=== PATIENT | male | born 1990 | race Caucasian/White ===

== ENCOUNTER 2016-06-12 12:25 | Inpatient (IN) | payer OTHER ==
[~2016-06-12] VITALS: Ht 175.3 cm; Wt 76.5 kg
[2016-06-12 14:15] LABS: MEAN CORPUSCULAR HGB CONC 34.6 g/dl (32.0-36.5); MEAN CORPUSCULAR VOLUME 83.8 fl (80.0-96.0); RED CELL DISTRIBUTION WIDTH 12.9 % (11.5-14.5); WHITE BLOOD COUNT 6.7 K/mm3 (4.0-10.0)
[2016-06-12 14:17] LABS: AMPHETAMINES LEVEL URINE NEGATIVE (NEGATIVE); BENZODIAZEPINES URINE NEGATIVE (NEGATIVE); COCAINE METABOLITE URINE NEGATIVE (NEGATIVE); CONTROL LINE INT CTR LINE PRESENT; METHADONE URINE NEGATIVE (NEGATIVE); OPIATES URINE NEGATIVE (NEGATIVE); TRICYCLIC ANTIDEPRESS URINE NEGATIVE (NEGATIVE)
[2016-06-12 14:44] LABS: ALBUMIN 4.6 GM/DL (3.2-5.2); ALBUMIN/GLOBULIN RATIO 1.44 (1.00-1.93); ALKALINE PHOSPHATASE 99 U/L (45-117); ALT/SGPT 39 U/L (12-78); ANION GAP 10 MEQ/L (8-16); AST/SGOT 22 U/L (15-37); BILIRUBIN,DIRECT 0.2 MG/DL (0.0-0.2); BILIRUBIN,TOTAL 0.5 MG/DL (0.2-1.0); BLOOD UREA NITROGEN 13 MG/DL (7-18); CARBON DIOXIDE LEVEL 28 MEQ/L (21-32); CHLORIDE LEVEL 104 MEQ/L (98-107); CREATININE FOR GFR 0.97 MG/DL (0.70-1.30); GLOMERULAR FILTRATION RATE > 60.0 (>60); GLUCOSE, FASTING 93 MG/DL (70-105); POTASSIUM SERUM 4.1 MEQ/L (3.5-5.1); SODIUM LEVEL 142 MEQ/L (136-145); TOTAL PROTEIN 7.8 GM/DL (6.4-8.2)
[2016-06-12] MEDS ORDERED: TRAZ100T4 PO (19:06)
[2016-06-12] MEDS ORDERED: MINI2CAP PO (19:06)
[2016-06-12] MEDS ORDERED: VITMTA PO (19:06)
[2016-06-12] MEDS ORDERED: SERT-138 PO (19:06)
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
--- NOTE | 2016-06-12 21:29 | EDDOCDS ---
Physician Documentation [facility] Name: Herbert Morillo Age: 26 yrs Sex: Male : 1990 Arrival Date: 06/12/2016 Time: 12:25 Bed [facility] Private MD: Other - Complete Info On Cds Disposition: 06/12/16 18:42 Hospitalization ordered by Puneet Valenzuela for Inpatient Admission. Preliminary diagnosis is Post-traumatic stress disorder (PTSD). - Bed requested for Admit. - Status is Inpatient Admission. rw1 - Condition is Stable. - Problem is an ongoing problem. - Symptoms have worsened. Historical: - Allergies: no known allergies; - Home Meds: 1. Zoloft 100 mg Oral tab 1 tab once daily 2. Minipress 2 mg Oral cap nightly 3. trazodone 100 mg Oral tab nightly - PMHx: PTSD; ETOH abuse; TBI; - PSHx: none; - Social history: Smoking status: Patient uses tobacco products, current some day smoker. No barriers to communication noted, The patient speaks fluent Romansh. - Family history: Not pertinent. - : The pt / caregiver states he / she is not on anticoagulants. Home medication list is obtained from the patient. - Exposure Risk Screening:: None identified. Vital Signs: 06/12 12:27 BP 161 / 100; Pulse 94; Resp 18 S; Temp 97.5(O); Pulse Ox 98% on R/A; Weight 74.84 kg / gr2 164.99 lbs (R); Height 69 in. (175.26 cm) (R); Pain 0/10; 13:55 BP 142 / 86; Pulse 89; Resp 16; Pulse Ox 97% on R/A; dwg 16:22 BP 150 / 88; Pulse 88; Resp 16; Temp 97.9(O); Pulse Ox 98% on R/A; dpm 21:25 BP 139 / 83; Pulse 95; Resp 95; Temp 97.6(O); Pulse Ox 97% on R/A; Pain 0/10; rw1 12:27 Body Mass Index 24.37 (74.84 kg, 175.26 cm) gr2 MDM: 13:15 REGULAR DIET PLASTIC CHAPARRO+DIET ordered. EDMS 13:54 Consult PFS/PSA/Ice Cream Freezer ordered. dwg 13:54 Consult PFS/PSA/Ice Cream Freezer: Patient's case requires discussion with on-call g Psychiatrist ordered. 13:54 PSA/PFS to call Nursing County Treasurer, to enter patient data on [place] Safe Act if patient dwg involuntarily admitted or transferred for SI or HI ordered. 13:54 Confirm accurate psychiatric medication list and times of last dosage ordered. dwg 13:54 Detain Pt Until Medically/PFS Cleared ordered. dwg 13:55 Acetaminophen Level Ordered. EDMS 13:55 Basic Metabolic Profile Ordered. EDMS 13:55 Complete Blood Count Ordered. EDMS 13:55 Drug Eval Toxicology ED Only Ordered. EDMS 13:55 Ethyl Alcohol (ethanol) Ordered. EDMS 13:55 Liver Profile Ordered. EDMS 13:55 Salicylate Level Ordered. EDMS 13:55 Thyroid Stimulating Hormone Ordered. EDMS 14:49 Acetaminophen Level Reviewed. br1 14:49 Drug Eval Toxicology ED Only Reviewed. br1 14:49 Salicylate Level Reviewed. br1 14:49 Basic Metabolic Profile Reviewed. br1 14:49 Complete Blood Count Reviewed. br1 14:49 Ethyl Alcohol (ethanol) Reviewed. br1 14:49 Liver Profile Reviewed. br1 14:49 Thyroid Stimulating Hormone Reviewed. br1 14:50 Consult PFS/PSA/Socail Worker: Cleared medically for eval ordered. br1 15:14 Consult PFS/PSA/Socail Worker: Cleared medically for eval complete. rb 16:12 REGULAR DIET PLASTIC CHAPARRO+DIET ordered. EDMS 17:19 Consult PFS/PSA/Ice Cream Freezer complete. rb 17:19 Consult PFS/PSA/Ice Cream Freezer: Patient's case requires discussion with on-call rb Psychiatrist complete. 17:19 PSA/PFS to call [employer] [place] Treasurer, to enter patient data on [place] Safe Act if patient rb involuntarily admitted or transferred for SI or HI complete. 17:22 Financial registration complete. gjb 17:56 BED REQUEST+ADM ordered. EDMS 18:04 Admit to [facility]: ordered. EDMS 18:20 [facility] Payment Agreement was scanned into angelcam and attached to record. gjb 18:54 [facility] Legal paperwork was scanned into angelcam and attached to record. rb Signatures: Dispatcher [employer] EDMS Braden Sahu RN RN dwg Liana Langford, PSA PSA rb Arron Childress LPN LPN rw1 Francisco Javier Badillo MD MD br1 Inna Amaya The chart was reviewed and I authenticate all verbal orders and agree with the evaluation and treatment provided.Attachments: 18:20 [facility] Payment Agreement maikel MTDD
[2016-06-12 21:44] VITALS: BP 148/91
[2016-06-12] MEDS ORDERED: MAALOX 30 ML SUSP *UDC PO PRN (23:15)
[2016-06-12] MEDS ORDERED: ACETAMINOPHEN TAB 650MG DOSE (2X325MG) PO PRN (23:15)
[2016-06-12] MEDS ORDERED: OXAZEPAM 15 MG CAP PO PRN (23:15)
[2016-06-12] MEDS ORDERED: MOM 30ML SUSPENSION UDC PO PRN (23:15)
[2016-06-12] MEDS ORDERED: OLANZapine ORAL DISINTEGRATING TAB 5MG PO PRN (23:15)
[2016-06-12] MEDS: PRAZOSIN 1 MG CAP PO SCH (23:33)
[2016-06-12] MEDS: traZODone 50 MG TAB PO PRN (23:34)
[2016-06-13 06:39] VITALS: BP 157/71
[2016-06-13] MEDS ORDERED: SERTRALINE 100 MG TAB PO SCH (09:00)
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
[2016-06-13 12:00] VITALS: BP 140/89
[2016-06-13] MEDS: hydrOXYzine 50 MG TAB PO PRN (17:36)
[2016-06-13 18:00] VITALS: BP 127/79
--- NOTE | 2016-06-13 20:11 | HPEPDOC ---
[facility] History & Physical History and Physical DATE OF ADMISSION: Jun 12, 2016 at 21:40 CHIEF COMPLAINT:" I'd already got out of mental hospital, they stressed me out, didn't know how meds would affect my alcohol level ". HISTORY OF THE PRESENT ILLNESS: Patient states "basically I got my treatment, went out with friends and got way too drunk. I have a dark sense of humor ". Patient states sometimes his humor can be taken the wrong way. Patient also states he didn't realize the effect of this medication when mixed with alcohol. Patient reports multiple times that he does not do well in places he feels confined. Such as this unit with block doors. Patient expresses interest in wanting to be transferred to a [place] treatment program. Patient also wants to get back into his exercise regimen of lifting weights. Patient feels this is the best way he can help and decrease his symptoms of PTSD. PAST PSYCHIATRIC HISTORY: Patient reports his first behavioral health treatment was in January 2016 for his PTSD. Patient states that this PTSD is from deployment issues that he had in 2010. Patient further states he did not admit to these issues of being stressed out. 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 Patient states she used to blame it on his jobs, but then feels he recognized a pattern and realized it was PTSD ALLERGIES: Please see below. PAST MEDICAL HISTORY: Patient denies HOME MEDICATIONS: Please see below. Patient states she was started on Zoloft 100 mg by mouth every morning during his hospitalization a week ago patient states at this time he was also started on prazosin 2 mg by mouth daily at bedtime for his "unwanted memories ". Patient states these memories occur randomly however he has noticed a occur more frequently when he is not busy or doing something that is keeping him focused. Patient states on average she has 2 -3 of these unwanted memories per day. Patient reports his unwanted memories are always from the activities of his deployment. FAMILY PSYCHIATRIC HISTORY: Patient denies. 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 Patient states he has one brother that is supportive. Patient states he has 2 brothers and 3 sisters total. Patient reports he does not get along with his mother as he feels she was responsible for the breakup of his parents marriage. Patient states his mom cheated on his dad with an anti- indy. Patient states his father has since . SUBSTANCE ABUSE HISTORY: Patient admits to smoking cannabis 2-3 times a week. Patient reports he is early failed the [facility] drug testing and is worried about his benefits. Patient also admits to drinking 8 beers, 2-3 times a week. LEGAL HISTORY: Patient reports she was arrested for public intoxication in the past and spent overnight in senior living. Patient denies any other arrests or senior living time. VITAL SIGNS: Temperature 96, pulse 80, respiratory rate 20, blood pressure 157/ 71. LABORATORY DATA: Please see below. On admission patient UDS was positive for cannabis alcohol level was 0.09. MENTAL STATUS EXAMINATION: Patient is a 26-year-old male who appears his stated age. Patient is noted to be lying in bed states he has a headache. Patient is pleasant and engageable sits up to speak with provider readily. Patient is wearing hospital scrubs and T -shirt. He appears to have average grooming. Patient is of normal weight and build. Speech: Is of normal rate and volume. Patient is articulate, coherent and spontaneous. Language skills are intact. Thought processes: Not clear or goal directed. Patient states "there are 150% clearer than when I was admitted ". Thought content: Rational, logical, circumstantial. Abstract reasoning and computation: Adequate. Description of associations: Intact. Description of abnormal or psychotic thoughts: Patient denies hallucinations, delusions, obsessions or compulsions, homicidal or suicidal ideation. Patient does feel preoccupied with discharge from the hospital. Judgment and insight: Poor. Orientation to: Time, place, person and situation. Recent and remote memory: "Pretty decent ". Attention span and concentration: Fair. Language: Normal. Fund of knowledge: Adequate. Mood: "Kind of anxious ", manic, slightly agitated, expansive, animated. Affect: Appropriate, flat, constricted, manic at times, animated at times. DIAGNOSES: 1. PTSD 2. Alcohol use disorder. 3. Cannabis use disorder 4. 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 Patient did request behavioral health services starting in January 2016 for symptoms that he recognized were PTSD. Patient states he has had a hard time getting treatment for the symptoms. Patient states this is why he returned to cannabis as he could not be seen or get medications that helped him improve and decrease the symptoms. Patient initially felt that is only with way to deal with this was to get out of the . After talking with provider patient felt like he may have had slight hope that if his symptoms of PTSD could be addressed that he would be able to stay in the . Patient states he does enjoy being in the when he is not having the symptoms that "stress him out", in his own words. Patient states that if he thought he could say in the by stopping the use of alcohol altogether and not using marijuana he would stop it immediately. This would run concurrent with him being placed on appropriate medications to limit the severity and intensity of his PTSD symptoms. This is his second enlistment. Patient states it became increasingly frustrating for him with his symptoms of increased stress that he unable to get help for. Patient reports an example of this was when he asked for behavioral health services while on a recent training assignment in [place], he was told in order to get the services he would have to report in front of a panel of peers in formation and explain to everyone why he felt he needed these services. Patient states this only increased his stress made him frustrated and feels like didn't care about what his mental health was. 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 He also reports he didn't feel that this was appropriate that he would have to share this private information. This alone patient reports has made him feel more anxious and stressed. Patient now feels like he doesn't know who he can trust and who really does have his back, so to speak. 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 Again patient states he felt like his only recourse was to use marijuana which brought him slight relief. PROBLEM LIST: 1. Anxiety 2. Substance abuse. 3. Ineffective coping. INITIAL TREATMENT PLAN: Patient to be assessed and evaluated on an ongoing basis. Patient will have medications adjusted as required to decrease symptoms. Maintain safety precautions. Patient to attend groups and participate in unit programming and activities to develop effective coping strategies. Patient to be engaged in discharge planning process to ensure safe and effective discharge plan. Patient to follow-up with primary care physician upon discharge for a complete physical with lab work. Patient to resume therapy and medication management services as directed. Patient to consider substance abuse support services to stop use of substances. ESTIMATED LENGTH OF STAY: 4-7 days. TIME SPENT EVALUATING AND COORDINATING INITIAL CARE: 50 minutes. Medications Scheduled Multivitamins *[facility] STOCKED* (Thera M Plus *[facility] STOCKED*) 1 Tab Tab 1 TAB PO DAILY (Reported) Prazosin HCl (Minipress) 2 Mg Cap 2 MG PO QHS (Reported) Sertraline HCl (Sertraline HCl) 100 Mg Tab 100 MG PO DAILY (Reported) Trazodone HCl (Trazodone HCl) 100 Mg Tab 100 MG PO QHS (Reported) Allergies Coded Allergies: No Known Allergies (Unverified , 06/12/16) RAJESH COOK NP Jun 13, 2016 20:11
[2016-06-13] MEDS: GABAPENTIN 100 MG CAP PO SCH (20:54)
[2016-06-13] MEDS: PRAZOSIN 1 MG CAP PO SCH (20:54)
[2016-06-13] MEDS: traZODone 50 MG TAB PO PRN (20:54)
--- NOTE | 2016-06-13 23:15 | ECGEPIP ---
Stationary ECG Study [facility] Test Date: 2016-06-13 Pat Name: LAXMI BOND Department: Room: [place] [address] Gender: M Local Sales Manager: NAOMY : 1990 Requested By: Carmel Troy Order Number: [id number] Reading MD: Keshawn Kidd Measurements Intervals [place] Rate: 66 P: 57 NM: 158 QRS: 78 QRSD: 94 T: 57 QT: 388 QTc: 407 Interpretive Statements SINUS RHYTHM NO PRIOR Electronically Signed On 06-13-2016 23:15:24 EST by Keshawn Kidd
[2016-06-14 06:50] VITALS: BP 145/67
[2016-06-14] MEDS: SERTRALINE HCL 50 MG TAB PO SCH (08:56)
[2016-06-14] MEDS: hydrOXYzine 50 MG TAB PO PRN ×2 (11:33→20:05)
[2016-06-14 12:00] VITALS: BP 126/83
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
[2016-06-14 18:00] VITALS: BP 129/74
[2016-06-14] MEDS: GABAPENTIN 100 MG CAP PO SCH (20:05)
[2016-06-14] MEDS: traZODone 50 MG TAB PO PRN (20:05)
[2016-06-14] MEDS: PRAZOSIN 1 MG CAP PO SCH (20:06)
--- NOTE | 2016-06-14 22:30 | EDDOCDS ---
Physician Documentation [facility] Name: Herbert Morillo Age: 26 yrs Sex: Male : 1990 Arrival Date: 06/12/2016 Time: 12:25 Bed [facility] Private MD: Other - Complete Info On Cds Disposition: 06/12/16 18:42 Hospitalization ordered by Puneet Valenzuela for Inpatient Admission. Preliminary diagnosis is Post-traumatic stress disorder (PTSD). - Bed requested for Admit. - Status is Inpatient Admission. rw1 - Condition is Stable. - Problem is an ongoing problem. - Symptoms have worsened. Historical: - Allergies: no known allergies; - Home Meds: 1. Zoloft 100 mg Oral tab 1 tab once daily 2. Minipress 2 mg Oral cap nightly 3. trazodone 100 mg Oral tab nightly - PMHx: PTSD; ETOH abuse; TBI; - PSHx: none; - Social history: Smoking status: Patient uses tobacco products, current some day smoker. No barriers to communication noted, The patient speaks fluent Vietnamese. - Family history: Not pertinent. - : The pt / caregiver states he / she is not on anticoagulants. Home medication list is obtained from the patient. - Exposure Risk Screening:: None identified. Vital Signs: 06/12 12:27 BP 161 / 100; Pulse 94; Resp 18 S; Temp 97.5(O); Pulse Ox 98% on R/A; Weight 74.84 kg / gr2 164.99 lbs (R); Height 69 in. (175.26 cm) (R); Pain 0/10; 13:55 BP 142 / 86; Pulse 89; Resp 16; Pulse Ox 97% on R/A; dwg 16:22 BP 150 / 88; Pulse 88; Resp 16; Temp 97.9(O); Pulse Ox 98% on R/A; dpm 21:25 BP 139 / 83; Pulse 95; Resp 95; Temp 97.6(O); Pulse Ox 97% on R/A; Pain 0/10; rw1 12:27 Body Mass Index 24.37 (74.84 kg, 175.26 cm) gr2 MDM: 13:15 REGULAR DIET PLASTIC CHAPARRO+DIET ordered. EDMS 13:54 Consult PFS/PSA/Vending Machine Servicer ordered. dwg 13:54 Consult PFS/PSA/Vending Machine Servicer: Patient's case requires discussion with on-call g Psychiatrist ordered. 13:54 PSA/PFS to call Nursing Can Striper, to enter patient data on [place] Safe Act if patient dwg involuntarily admitted or transferred for SI or HI ordered. 13:54 Confirm accurate psychiatric medication list and times of last dosage ordered. dwg 13:54 Detain Pt Until Medically/PFS Cleared ordered. dwg 13:55 Acetaminophen Level Ordered. EDMS 13:55 Basic Metabolic Profile Ordered. EDMS 13:55 Complete Blood Count Ordered. EDMS 13:55 Drug Eval Toxicology ED Only Ordered. EDMS 13:55 Ethyl Alcohol (ethanol) Ordered. EDMS 13:55 Liver Profile Ordered. EDMS 13:55 Salicylate Level Ordered. EDMS 13:55 Thyroid Stimulating Hormone Ordered. EDMS 14:49 Acetaminophen Level Reviewed. br1 14:49 Drug Eval Toxicology ED Only Reviewed. br1 14:49 Salicylate Level Reviewed. br1 14:49 Basic Metabolic Profile Reviewed. br1 14:49 Complete Blood Count Reviewed. br1 14:49 Ethyl Alcohol (ethanol) Reviewed. br1 14:49 Liver Profile Reviewed. br1 14:49 Thyroid Stimulating Hormone Reviewed. br1 14:50 Consult PFS/PSA/Socail Worker: Cleared medically for eval ordered. br1 15:14 Consult PFS/PSA/Socail Worker: Cleared medically for eval complete. rb 16:12 REGULAR DIET PLASTIC CHAPARRO+DIET ordered. EDMS 17:19 Consult PFS/PSA/Vending Machine Servicer complete. rb 17:19 Consult PFS/PSA/Vending Machine Servicer: Patient's case requires discussion with on-call rb Psychiatrist complete. 17:19 PSA/PFS to call Nursing Can Striper, to enter patient data [place] Safe [place] if patient rb involuntarily admitted or transferred for SI or HI complete. 17:22 Financial registration complete. gjb 17:56 BED REQUEST+ADM ordered. EDMS 18:04 Admit to [facility]: ordered. EDMS 18:20 [facility] Payment Agreement was scanned into [employer] and attached to record. gjb 18:54 M[facility] Legal paperwork was scanned into [employer] and attached to record. rb 06/13 12:49 T-Sheet-- Draft Copy was scanned into [employer] and attached to record. gb Signatures: Dispatcher [employer] Braden Brown, RN RN dwg Liana Langford, PSA PSA rb Latoya Magaña, Reg Reg gb Arron Childress,CABLE SYSTEMS INSTALLER CABLE SYSTEMS INSTALLER rw1 Francisco Javier Badillo MD MD br1 Inna Amaya The chart was reviewed and I authenticate all verbal orders and agree with the evaluation and treatment provided.Attachments: 06/12 18:20 [facility] Payment Agreement gjb 06/13 12:49 T-Sheet-- Draft Copy gb Chart Complete MTDD
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
--- NOTE | 2016-06-14 22:30 | EDDOCDS ---
Physician Documentation [facility] Name: Herbert Morillo Age: 26 yrs Sex: Male : 1990 Arrival Date: 06/12/2016 Time: 12:25 Bed [facility] Private MD: Other - Complete Info On Cds Disposition: 06/12/16 18:42 Hospitalization ordered by Puneet Valenzuela for Inpatient Admission. Preliminary diagnosis is Post-traumatic stress disorder (PTSD). - Bed requested for Admit. - Status is Inpatient Admission. rw1 - Condition is Stable. - Problem is an ongoing problem. - Symptoms have worsened. Historical: - Allergies: no known allergies; - Home Meds: 1. Zoloft 100 mg Oral tab 1 tab once daily 2. Minipress 2 mg Oral cap nightly 3. trazodone 100 mg Oral tab nightly - PMHx: PTSD; ETOH abuse; TBI; - PSHx: none; - Social history: Smoking status: Patient uses tobacco products, current some day smoker. No barriers to communication noted, The patient speaks fluent Uzbek. - Family history: Not pertinent. - : The pt / caregiver states he / she is not on anticoagulants. Home medication list is obtained from the patient. - Exposure Risk Screening:: None identified. Vital Signs: 06/12 12:27 BP 161 / 100; Pulse 94; Resp 18 S; Temp 97.5(O); Pulse Ox 98% on R/A; Weight 74.84 kg / gr2 164.99 lbs (R); Height 69 in. (175.26 cm) (R); Pain 0/10; 13:55 BP 142 / 86; Pulse 89; Resp 16; Pulse Ox 97% on R/A; dwg 16:22 BP 150 / 88; Pulse 88; Resp 16; Temp 97.9(O); Pulse Ox 98% on R/A; dpm 21:25 BP 139 / 83; Pulse 95; Resp 95; Temp 97.6(O); Pulse Ox 97% on R/A; Pain 0/10; rw1 12:27 Body Mass Index 24.37 (74.84 kg, 175.26 cm) gr2 MDM: 13:15 REGULAR DIET PLASTIC CHAPARRO+DIET ordered. EDMS 13:54 Consult PFS/PSA/Hoop Coiler ordered. dwg 13:54 Consult PFS/PSA/Hoop Coiler: Patient's case requires discussion with on-call g Psychiatrist ordered. 13:54 PSA/PFS to call Nursing Finish Mixer, to enter patient data on [place] Safe [place] if patient dwg involuntarily admitted or transferred for SI or HI ordered. 13:54 Confirm accurate psychiatric medication list and times of last dosage ordered. dwg 13:54 Detain Pt Until Medically/PFS Cleared ordered. dwg 13:55 Acetaminophen Level Ordered. EDMS 13:55 Basic Metabolic Profile Ordered. EDMS 13:55 Complete Blood Count Ordered. EDMS 13:55 Drug Eval Toxicology ED Only Ordered. EDMS 13:55 Ethyl Alcohol (ethanol) Ordered. EDMS 13:55 Liver Profile Ordered. EDMS 13:55 Salicylate Level Ordered. EDMS 13:55 Thyroid Stimulating Hormone Ordered. EDMS 14:49 Acetaminophen Level Reviewed. br1 14:49 Drug Eval Toxicology ED Only Reviewed. br1 14:49 Salicylate Level Reviewed. br1 14:49 Basic Metabolic Profile Reviewed. br1 14:49 Complete Blood Count Reviewed. br1 14:49 Ethyl Alcohol (ethanol) Reviewed. br1 14:49 Liver Profile Reviewed. br1 14:49 Thyroid Stimulating Hormone Reviewed. br1 14:50 Consult PFS/PSA/Socail Worker: Cleared medically for eval ordered. br1 15:14 Consult PFS/PSA/Socail Worker: Cleared medically for eval complete. rb 16:12 REGULAR DIET PLASTIC CHAPARRO+DIET ordered. EDMS 17:19 Consult PFS/PSA/Hoop Coiler complete. rb 17:19 Consult PFS/PSA/Hoop Coiler: Patient's case requires discussion with on-call rb Psychiatrist complete. 17:19 PSA/PFS to call Nursing Finish Mixer, to enter patient data [place] Safe [place] if patient rb involuntarily admitted or transferred for SI or HI complete. 17:22 Financial registration complete. gjb 17:56 BED REQUEST+ADM ordered. EDMS 18:04 Admit to [facility] THE [facility]: ordered. EDMS 18:20 [facility] Payment Agreement was scanned into [employer] and attached to record. gjb 18:54 [facility] Legal paperwork was scanned into [employer] and attached to record. rb 06/13 12:49 T-Sheet-- Draft Copy was scanned into [employer] and attached to record. gb Signatures: Dispatcher [employer] Braden Brown, RN RN dwg Liana Langford, PSA PSA rb Latoya Magaña, Reg Reg gb Arron Childress,CARE COORDINATOR CARE COORDINATOR rw1 Francisco Javier Badillo MD MD br1 Inna Amaya The chart was reviewed and I authenticate all verbal orders and agree with the evaluation and treatment provided.Attachments: 06/12 18:20 [facility] Payment Agreement gjb 06/13 12:49 T-Sheet-- Draft Copy gb Chart Complete MTDD
[2016-06-15 06:38] VITALS: BP 108/55
[2016-06-15] MEDS: hydrOXYzine 50 MG TAB PO PRN ×2 (08:09→19:59)
[2016-06-15] MEDS: SERTRALINE HCL 50 MG TAB PO SCH (08:09)
[2016-06-15 18:00] VITALS: BP 118/62
--- NOTE | 2016-06-15 18:20 | IPNPDOC ---
[facility] Progress Note Progress Note DATE OF SERVICE: 06/15/16 HISTORY: " I'd already got out of mental hospital, they stressed me out, didn't know how meds would affect my alcohol level ". Patient states "basically I got my treatment, went out with friends and got way too drunk. I have a dark sense of humor ". Patient states sometimes his humor can be taken the wrong way. Patient also states he didn't realize the effect of this medication when mixed with alcohol. Patient reports multiple times that he does not do well in places he feels confined. Such as this unit with block doors. Patient expresses interest in wanting to be transferred to a [facility] treatment program. Patient also wants to get back into his exercise regimen of lifting weights. Patient feels this is the best way he can help and decrease his symptoms of PTSD. PAST PSYCHIATRIC HISTORY: Patient reports his first behavioral health treatment was in January 2016 for his PTSD. Patient states that this PTSD is from deployment issues that he had in 2010. Patient further states he did not admit to these issues of being stressed out. 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 Patient states she used to blame it on his jobs, but then feels he recognized a pattern and realized it was PTSD ALLERGIES: Please see below. PAST MEDICAL HISTORY: Patient denies HOME MEDICATIONS: Please see below. Patient states he was started on Zoloft 100 mg by mouth every morning during his hospitalization a week ago. Patient states at this time he was also started on prazosin 2 mg by mouth daily at bedtime for his "unwanted memories ". Patient reports these memories occur randomly, however he has noticed they occur more frequently when he is stressed or not busy. Patient states on average he has 2-3 of these unwanted memories per day. Patient reports his unwanted memories are always from the activities of his deployment, specifically "The [employer] blast". FAMILY PSYCHIATRIC HISTORY: Patient denies. 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 Patient states he has one brother that is supportive. Patient states he has 2 brothers and 3 sisters total. Patient reports he does not get along with his mother as he feels she was responsible for the breakup of his parents marriage. Patient states his mom cheated on his dad with an anti- indy. Patient states his father has since . SUBSTANCE ABUSE HISTORY: Patient admits to smoking cannabis 2-3 times a week. Patient reports he has already failed the [place] drug testing and is worried about his benefits. Patient also admits to drinking 8 beers, 2-3 times a week. Pt. reports he did this only to relieve some of his symptoms as he was not able to get behavioral health treatment. LEGAL HISTORY: Patient reports he was arrested for public intoxication in the past and spent overnight in assisted. Patient denies any other arrests or assisted time. VITAL SIGNS: See below. 96.4 76 18 108/55 TEST RESULTS: On admission patient UDS was positive for cannabis, alcohol level was 0.09. CURRENT MEDICATIONS: See below. Zoloft 50 mg po q am, Prazosin 2 mg po q hs, gabapentin 100 mg po q hs, trazodone 100 mg po q hs, hydroxyzine hydrochloride 50 mg po q 6h prn for anxiety/agitation. MENTAL STATUS EXAMINATION: Patient is a 26-year-old male who appears his stated age. Patient is noted to be in line for medication. Patient is pleasant, easily engaged. Patient is wearing his own clothes. He appears to have average grooming. Patient is of normal weight and build. Speech: Is of normal rate and volume. Patient is articulate, coherent and spontaneous. Language skills are intact. Thought processes: Clear, goal directed. Thought content: Rational, logical. Abstract reasoning and computation: Adequate. Description of associations: Intact. Description of abnormal or psychotic thoughts: Patient denies hallucinations, delusions, obsessions or compulsions, homicidal or suicidal ideation. Patient does feel preoccupied with discharge from the hospital, worried about benefits when he is from the [employer]. Judgment and insight: Fair. Orientation to : Time, place, person and situation. Recent and remote memory: "Same". Attention span and concentration: Fair. Language: Normal. Fund of knowledge: Adequate. Mood: "Good", rational. Affect: Appropriate, flat, constricted. DIAGNOSES: 1. PTSD. 2. Alcohol use disorder. 3. Cannabis use disorder. 4. Insomnia. ASSESSMENT: Pt. seen for assessment after he received his morning meds. Pt. states he slept "Good" last night and got 8 hours of sleep, "Same as last night ". Pt. reports feeling rested on waking. Pt. states he has been eating in the lounge and going to groups. Pt. appears to be more clear, not manic, calmer in behavior. Pt. again states he does not like crowds of people or confined spaces. Pt. appears to be adjusting to the unit well, is starting to be more social with less isolating. Pt. denies all suicidal or homicidal ideation. Pt. encouraged to participate in activities and unit programming that may help to decrease his stress. Pt. reports his "unwanted memories" have decreased and not occurred for a few days. Pt. continues to appear calm and not agitated. Pt. continues to be in emotional and behavioral control. MANAGEMENT PLAN: Patient to be assessed and evaluated on an ongoing basis. Patient will have medications adjusted as required to decrease symptoms. Maintain safety precautions. Patient to attend groups and participate in unit programming and activities to develop effective coping strategies. Patient to be engaged in discharge planning process to ensure safe and effective discharge plan. Patient to follow-up with primary care physician upon discharge for a complete physical with lab work. Patient to resume therapy and medication management services as directed. Patient to consider substance abuse support services to stop use of substances. Pt. feels today he will only agree to [facility]. Pt. understands he can ask for senior living care if he feel he needs it after the [facility] program. 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 Patient states he did request behavioral health services starting in January 2016 for symptoms that he recognized were PTSD. Patient states he has had a hard time getting treatment for the symptoms. Patient states this is why he returned to cannabis as he could not be seen or get medications that helped him improve and decrease the symptoms. Patient initially felt that is only with way to deal with this was to get out of the . Patient had previously told his chain of command that he wanted to be discharged. Pt. states he did this as he did not want his symptoms jeopardizing his fellow soldiers and did not think that he could get the symptoms under control. Pt. reports if he had known it was treatable, he would have opted to stay in the . Patient states he does enjoy being in the when he is not having the symptoms that "stress him out", in his own words. Patient states that if he thought he could say in the by stopping the use of alcohol altogether and not using marijuana he would stop it immediately. This would run concurrent with him being placed on appropriate medications to limit the severity and intensity of his PTSD symptoms. This is his second enlistment. Patient states it has become increasingly frustrating for him with his symptoms of increased stress which he was unable to get help for. Patient reports an example of this was when he asked for behavioral health services while on a recent training assignment in [place], he was told in order to get the services, he would have to report in front of formation and explain to everyone why he felt he needed these services. Patient states this only increased his stress and made him feel more frustrated. Pt. also felt like the didn't care about what his mental health was. Patient states even if he wanted to he would not have been able to bilingual case manager front of a group of his peers and discuss his private mental health issues. He also reports he didn't feel that this was appropriate that he would have to share this private information. This alone, patient reports has made him feel more anxious and stressed. Patient now feels like he doesn't know who he can trust and who really does have his back, so to speak. 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 Again patient states he felt like his only recourse was to use marijuana which brought him slight relief. TIME SPENT: 25 minutes. Vital Signs Vital Signs Date Time Temp Pulse Resp B/P Pulse Ox O2 Delivery O2 Flow Rate FiO2 06/15/16 06:38 96.4 76 18 108/55 06/12/16 21:44 Room Air Current Medications Current Medications Medications (Trade) Dose Ordered Sig/Mirian Route PRN Reason Start Time Stop Time Status Last Admin Dose Admin Acetaminophen (Tylenol Tab) 650 mg Q6HP PRN PO HEADACHE or DISCOMFORT 06/12/16 23:15 07/12/16 23:14 06/13/16 14:30 Al Hydrox/Mg Hydrox/Simethicone (Mylanta) 30 ml Q4HP PRN PO HEARTBURN/INDIGESTION 06/12/16 23:15 07/12/16 23:14 Gabapentin (Neurontin) 100 mg QHS PO 06/13/16 21:00 07/13/16 20:59 06/14/16 20:05 Home Med (Med Rec Complete!) ASDIRECTED XX 06/12/16 19:15 06/12/16 19:15 DC Hydroxyzine HCl (Atarax) 50 mg Q6HP PRN PO ANXIETY/AGITATION 06/13/16 17:00 07/13/16 16:59 06/15/16 08:09 Magnesium Hydroxide (Milk Of Magnesia) 30 ml DAILYPRN PRN PO CONSTIPATION 06/12/16 23:15 07/12/16 23:14 Olanzapine (ZyPREXA ZYDIS) 5 mg Q4HP PRN PO ANXIETY/AGITATION 06/12/16 23:15 06/13/16 17:05 DC Oxazepam (Serax) 30 mg Q4HP PRN PO WITHDRAWAL SYMPTOMS 06/12/16 23:15 06/19/16 23:14 Prazosin HCl (Minipress) 2 mg QHS PO 06/12/16 21:00 07/12/16 20:59 06/14/16 20:06 Sertraline HCl (Zoloft) 50 mg DAILY PO 06/14/16 09:00 07/14/16 08:59 06/15/16 08:09 Sertraline HCl (Zoloft) 100 mg DAILY PO 06/13/16 09:00 06/13/16 17:05 DC 06/13/16 09:58 Trazodone HCl (Desyrel) 100 mg QHSP PRN PO INSOMNIA 06/12/16 23:15 07/12/16 23:14 06/14/16 20:05 Allergies Coded Allergies: No Known Allergies (Unverified , 06/12/16) RAJESH COOK NP Jun 15, 2016 18:20
[2016-06-15] MEDS: traZODone 50 MG TAB PO PRN (19:58)
[2016-06-15] MEDS: PRAZOSIN 1 MG CAP PO SCH (19:59)
[2016-06-15] MEDS: GABAPENTIN 100 MG CAP PO SCH (19:59)
[2016-06-15 20:06] VITALS: BP 144/92
[2016-06-16 06:48] VITALS: BP 146/78
[2016-06-16] MEDS: SERTRALINE HCL 50 MG TAB PO SCH (08:55)
[2016-06-16 12:00] VITALS: BP 142/71
[2016-06-16] MEDS: hydrOXYzine 50 MG TAB PO PRN (12:07)
[2016-06-16 18:00] VITALS: BP 138/77
[2016-06-16] MEDS: PRAZOSIN 1 MG CAP PO SCH (20:06)
[2016-06-16] MEDS: GABAPENTIN 100 MG CAP PO SCH (20:06)
[2016-06-16] MEDS: traZODone 50 MG TAB PO PRN (20:07)
[2016-06-16 21:43] VITALS: BP 140/78
--- NOTE | 2016-06-17 04:02 | IPN ---
DATE OF SERVICE: 06/16/2016 SUBJECTIVE: "I'm feeling a little better." OBJECTIVE: Patient is improving slowly. Denies side effect from the medication. Report good night's sleep with the help of the medication. No evidence of psychotic symptoms. Motivated for treatment. MENTAL STATUS EXAMINATION: Patient is dressed in [facility]. Patient is calm and cooperative. Speech is normal in rate, volume and articulation. Mood is depressed and anxious. Affect is restricted. No delusions or hallucinations. Short and long-term memory are fair. Patient is fully oriented. Associations are intact. Thinking is logical. Thought content is appropriate. The patient is able to contract for safety and denies suicidal or homicidal ideation. Insight and judgment is fair. ASSESSMENT: 1. Depression. 2. Suicidal ideation. 3. Posttraumatic stress disorder (PTSD). PLAN: 1. Continue with Zoloft 50 mg by mouth every morning. 2. Continue Neurontin 100 mg by mouth nightly. 3. Continue trazodone 100 mg by mouth nightly as needed for insomnia. 4. Continue with prazosin 2 mg by mouth nightly. 5. Continue with medication management, individual and group therapy.
[2016-06-17 06:39] VITALS: BP 129/59
[2016-06-17] MEDS: SERTRALINE HCL 50 MG TAB PO SCH (08:30)
[2016-06-17 12:02] VITALS: BP 118/68
[2016-06-17 18:00] VITALS: BP 124/75
[2016-06-17] MEDS: traZODone 50 MG TAB PO PRN (20:06)
[2016-06-17] MEDS: GABAPENTIN 100 MG CAP PO SCH (20:06)
[2016-06-17] MEDS: PRAZOSIN 1 MG CAP PO SCH (20:07)
[2016-06-17 20:15] VITALS: BP 139/84
[2016-06-18 06:41] VITALS: BP 129/59
[2016-06-18] MEDS: SERTRALINE HCL 50 MG TAB PO SCH (08:26)
--- NOTE | 2016-06-18 11:35 | IPNPDOC ---
[facility] Progress Note Progress Note DATE OF SERVICE: 06/18/16 HISTORY: " I'd already got out of mental hospital, they stressed me out, didn't know how meds would affect my alcohol level ". Patient states "basically I got my treatment, went out with friends and got way too drunk. I have a dark sense of humor ". Patient states sometimes his humor can be taken the wrong way. Patient also states he didn't realize the effect of this medication when mixed with alcohol. Patient reports multiple times that he does not do well in places he feels confined. Such as this unit with block doors. Patient expresses interest in wanting to be transferred to a [place] treatment program. Patient also wants to get back into his exercise regimen of lifting weights. Patient feels this is the best way he can help and decrease his symptoms of PTSD. PAST PSYCHIATRIC HISTORY: Patient reports his first behavioral health treatment was in January 2016 for his PTSD. Patient states that this PTSD is from deployment issues that he had in 2010. Patient further states he did not admit to these issues of being stressed out. 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 Patient states she used to blame it on his jobs, but then feels he recognized a pattern and realized it was PTSD ALLERGIES: Please see below. PAST MEDICAL HISTORY: Patient denies HOME MEDICATIONS: Please see below. Patient states he was started on Zoloft 100 mg by mouth every morning during his hospitalization a week ago. Patient states at this time he was also started on prazosin 2 mg by mouth daily at bedtime for his "unwanted memories ". Patient reports these memories occur randomly, however he has noticed they occur more frequently when he is stressed or not busy. Patient states on average he has 2-3 of these unwanted memories per day. Patient reports his unwanted memories are always from the activities of his deployment, specifically "[place] [employer] blast". FAMILY PSYCHIATRIC HISTORY: Patient denies. 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 Patient states he has one brother that is supportive. Patient states he has 2 brothers and 3 sisters total. Patient reports he does not get along with his mother as he feels she was responsible for the breakup of his parents marriage. Patient states his mom cheated on his dad with an anti- indy. Patient states his father has since . SUBSTANCE ABUSE HISTORY: Patient admits to smoking cannabis 2-3 times a week. Patient reports he has already failed the [facility] drug testing and is worried about his benefits. Patient also admits to drinking 8 beers, 2-3 times a week. Pt. reports he did this only to relieve some of his symptoms as he was not able to get behavioral health treatment. LEGAL HISTORY: Patient reports he was arrested for public intoxication in the past and spent overnight in retirement. Patient denies any other arrests or retirement time. VITAL SIGNS: See below. 96.6 82 18 129/59. TEST RESULTS: On admission patient UDS was positive for cannabis, alcohol level was 0.09. CURRENT MEDICATIONS: See below. Zoloft 50 mg po q am, Prazosin 2 mg po q hs, gabapentin 100 mg po q hs, trazodone 100 mg po q hs, hydroxyzine hydrochloride 50 mg po q 6h prn for anxiety/agitation. MENTAL STATUS EXAMINATION: Patient is a 26-year-old male who appears his stated age. Patient is noted to be in the lounge with his peers. Patient is pleasant and easily engaged. Patient is wearing his own clothes. He appears to have average grooming. Patient is of normal weight and build. Speech: Is of normal rate and volume. Patient is articulate, coherent and spontaneous. Language skills are intact. Thought processes: Clear, goal directed. Thought content: Rational, logical. Abstract reasoning and computation: Adequate. Description of associations: Intact. Description of abnormal or psychotic thoughts: Patient denies hallucinations, delusions, paranoia, obsessions or compulsions, homicidal or suicidal ideation. Patient does feel preoccupied with discharge from the hospital, worried about benefits when he is from the [employer]. Judgment and insight: Fair. Orientation to: Time, place, person and situation. Recent and remote memory: " No issues". Attention span and concentration: Fair. Language: Normal. Fund of knowledge: Adequate. Mood: "Great", rational. Affect: Appropriate, flat, constricted. DIAGNOSES: 1. PTSD. 2. Alcohol use disorder. 3. Cannabis use disorder. 4. Insomnia. ASSESSMENT: Pt. seen for assessment after breakfast. Pt. states he slept " Pretty good, actually". Pt. states last night he got 8-9 hours of sleep, and was rested on waking. Pt. states he has been eating in the lounge and going to groups. Pt. appears to be more clear, not manic and calm in behavior. Pt. continues to state he does not like crowds of people or confined spaces. Pt. appears to be adjusting to the unit well, is more social with less isolating. Pt. denies all suicidal or homicidal ideation. Pt. encouraged to participate in activities and unit programming that may help to decrease his stress. Pt. reports his "unwanted memories" have decreased and not occurred for a few days. Pt. has shown no signs of anger or agitation. Pt. continues to be in emotional and behavioral control. Pt. rates depression and anxiety 0/10 today. MANAGEMENT PLAN: Patient to be assessed and evaluated on an ongoing basis. Patient will have medications adjusted as required to decrease symptoms. Maintain safety precautions. Patient to attend groups and participate in unit programming and activities to develop effective coping strategies. Patient to be engaged in discharge planning process to ensure safe and effective discharge plan. Patient to follow-up with primary care physician upon discharge for a complete physical with lab work. Patient to resume therapy and medication management services as directed. Patient to consider substance abuse support services to stop use of substances(alcohol, marijuana). Pt. continues to feel that the [facility] is the only one that can help him with is PTSD. Pt. understands he can ask for retirement care if he feel he needs it after the [facility]. Pt. is [facility] eligible and will be encouraged to continue with this treatment. 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 Patient states he did request behavioral health services starting in January 2016 for symptoms that he recognized were PTSD. Patient states he has had a hard time getting treatment for the symptoms. Patient states this is why he returned to cannabis as he could not be seen or get medications that helped him improve and decrease the symptoms. Patient initially felt that is only with way to deal with this was to get out of the . Patient had previously told his chain of command that he wanted to be discharged. Pt. states he did this as he did not want his symptoms jeopardizing his fellow soldiers and did not think that he could get the symptoms under control. Pt. reports if he had known it was treatable, he would have opted to stay in the . Patient states he does enjoy being in the when he is not having the symptoms that "stress him out", in his own words. Patient states that if he thought he could say in the by stopping the use of alcohol altogether and not using marijuana he would stop it immediately. This would run concurrent with him being placed on appropriate medications to limit the severity and intensity of his PTSD symptoms. This is his second enlistment. Patient states it has become increasingly frustrating for him with his symptoms of increased stress which he was unable to get help for. Patient reports an example of this was when he asked for behavioral health services while on a recent training assignment in [place], he was told in order to get the services, he would have to report in front of formation and explain to everyone why he felt he needed these services. Patient states this only increased his stress and made him feel more frustrated. Pt. also felt like the didn't care about what his mental health was. Patient states even if he wanted to he would not have been able to therapy site coordinator front of a group of his peers and discuss his private mental health issues. He also reports he didn't feel that this was appropriate that he would have to share this private information. This alone, patient reports has made him feel more anxious and stressed. Patient now feels like he doesn't know who he can trust and who really does have his back, so to speak. 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 Again patient states he felt like his only recourse was to use marijuana which brought him slight relief. TIME SPENT: 25 minutes. Vital Signs Vital Signs Date Time Temp Pulse Resp B/P Pulse Ox O2 Delivery O2 Flow Rate FiO2 06/18/16 06:41 96.6 82 18 129/59 06/12/16 21:44 Room Air Current Medications Current Medications Medications (Trade) Dose Ordered Sig/Mirian Route PRN Reason Start Time Stop Time Status Last Admin Dose Admin Acetaminophen (Tylenol Tab) 650 mg Q6HP PRN PO HEADACHE or DISCOMFORT 06/12/16 23:15 07/12/16 23:14 06/13/16 14:30 Al Hydrox/Mg Hydrox/Simethicone (Mylanta) 30 ml Q4HP PRN PO HEARTBURN/INDIGESTION 06/12/16 23:15 07/12/16 23:14 Gabapentin (Neurontin) 100 mg QHS PO 06/13/16 21:00 07/13/16 20:59 06/17/16 20:06 Home Med (Med Rec Complete!) ASDIRECTED XX 06/12/16 19:15 06/12/16 19:15 DC Hydroxyzine HCl (Atarax) 50 mg Q6HP PRN PO ANXIETY/AGITATION 06/13/16 17:00 07/13/16 16:59 06/16/16 12:07 Magnesium Hydroxide (Milk Of Magnesia) 30 ml DAILYPRN PRN PO CONSTIPATION 06/12/16 23:15 07/12/16 23:14 Olanzapine (ZyPREXA ZYDIS) 5 mg Q4HP PRN PO ANXIETY/AGITATION 06/12/16 23:15 06/13/16 17:05 DC Oxazepam (Serax) 30 mg Q4HP PRN PO WITHDRAWAL SYMPTOMS 06/12/16 23:15 06/18/16 08:19 DC Prazosin HCl (Minipress) 2 mg QHS PO 06/12/16 21:00 07/12/16 20:59 06/17/16 20:07 Sertraline HCl (Zoloft) 50 mg DAILY PO 06/14/16 09:00 07/14/16 08:59 06/18/16 08:26 Sertraline HCl (Zoloft) 100 mg DAILY PO 06/13/16 09:00 06/13/16 17:05 DC 06/13/16 09:58 Trazodone HCl (Desyrel) 100 mg QHSP PRN PO INSOMNIA 06/12/16 23:15 07/12/16 23:14 06/17/16 20:06 Allergies Coded Allergies: No Known Allergies (Unverified , 06/12/16) RAJESH COOK NP Jun 18, 2016 11:35
[2016-06-18 12:06] VITALS: BP 138/63
[2016-06-18 18:17] VITALS: BP 120/72
[2016-06-18] MEDS ORDERED: MINI1CAP PO (18:54)
[2016-06-18] MEDS ORDERED: SERT-141 PO (18:54)
[2016-06-18] MEDS ORDERED: HYDRO50TAB PO (18:54)
[2016-06-18] MEDS ORDERED: TRAZ100T4 PO (18:54)
[2016-06-18] MEDS ORDERED: GABA-279 PO (18:54)
[2016-06-18] MEDS: GABAPENTIN 100 MG CAP PO SCH (20:03)
[2016-06-18 20:04] VITALS: BP 141/86
[2016-06-18] MEDS: PRAZOSIN 1 MG CAP PO SCH (20:04)
[2016-06-18] MEDS: traZODone 50 MG TAB PO PRN (20:04)
[2016-06-19 06:24] VITALS: BP 118/58
[2016-06-19] MEDS: SERTRALINE HCL 50 MG TAB PO SCH (08:21)
--- NOTE | 2016-06-19 13:29 | DS.PDOC ---
[facility] Discharge Summary Discharge Summary DATE OF ADMISSION: Jun 12, 2016 at 21:40 DATE OF DISCHARGE: Jun 19, 2016 DISCHARGE DIAGNOSES: PTSD, Alcohol use disorder, Cannabis use disorder, insomnia REASON FOR ADMISSION: " I'd already got out of mental hospital, they stressed me out, didn't know how meds would affect my alcohol level ". Patient states "basically I got my treatment, went out with friends and got way too drunk. I have a dark sense of humor ". Patient states sometimes his humor can be taken the wrong way. Patient also states he didn't realize the effect of this medication when mixed with alcohol. Patient reports multiple times that he does not do well in places he feels confined. Such as this unit with block doors. Patient expresses interest in wanting to be transferred to a [facility] treatment program. Patient also wants to get back into his exercise regimen of lifting weights. Patient feels this is the best way he can help and decrease his symptoms of PTSD. TEST RESULTS: On admission patient UDS was positive for cannabis, alcohol level was 0.09. PAST PSYCHIATRIC HISTORY: Patient reports his first behavioral health treatment was in January 2016 for his PTSD. Patient states that this PTSD is from deployment issues that he had in 2010. Patient further states he did not admit to these issues of being stressed out. 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 Patient states she used to blame it on his jobs, but then feels he recognized a pattern and realized it was PTSD. FAMILY PSYCHIATRIC HISTORY: Patient denies. 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 Patient states he has one brother that is supportive. Patient states he has 2 brothers and 3 sisters total. Patient reports he does not get along with his mother as he feels she was responsible for the breakup of his parents marriage. Patient states his mom cheated on his dad with an anti- indy. Patient states his father has since . SUBSTANCE ABUSE HISTORY: Patient admits to smoking cannabis 2-3 times a week. Patient reports he has already failed the [facility] drug testing and is worried about his benefits. Patient also admits to drinking 8 beers, 2-3 times a week. Pt. reports he did this only to relieve some of his symptoms as he was not able to get behavioral health treatment. LEGAL HISTORY: Patient reports he was arrested for public intoxication in the past and spent overnight in shelter. Patient denies any other arrests or shelter time. TREATMENT AND PROGRESS ON THE UNIT: Pt. seen for assessment after breakfast. Pt. states he slept "Pretty good". Pt. states last night he got 8 hours of sleep , was rested on waking. Pt. states he has been eating in the lounge and going to groups. Pt. appears to be more clear, not manic and calm in behavior. Pt. continues to state he does not like crowds of people or confined spaces. Pt. appears to be adjusting to the unit well, is more social with less isolating. Pt. denies all suicidal or homicidal ideation. Pt. encouraged to participate in activities and unit programming that may help to decrease his stress. Pt. reports his "unwanted memories" have decreased and not occurred for a few days. Pt. has shown no signs of anger or agitation. Pt. continues to be in emotional and behavioral control. Pt. rates depression and anxiety 0/10 today. Pt. feels he is ready for discharge. MENTAL STATUS EXAMINATION ON DISCHARGE: Patient is a 26-year-old male who appears his stated age. Patient is noted to be in the lounge with his peers. Patient is pleasant and easily engaged. Patient is wearing his own clothes. He appears to have average grooming. Patient is of normal weight and build. Speech: Is of normal rate and volume. Patient is articulate, coherent and spontaneous. Language skills are intact. Thought processes: Clear, goal directed. Thought content: Rational, logical. Abstract reasoning and computation: Adequate. Description of associations: Intact. Description of abnormal or psychotic thoughts: Patient denies hallucinations, delusions, paranoia, obsessions or compulsions, homicidal or suicidal ideation. Patient is stable for discharge. Patient does feel preoccupied with discharge from the hospital, worried about benefits when he is from the [employer]. Judgment and insight: Fair. Orientation to: Time, place, person and situation. Recent and remote memory: "No problems". Attention span and concentration: Fair. Language: Normal. Fund of knowledge: Adequate. Mood: "Great, super", rational. Affect: Appropriate, flat, constricted. MEDICATIONS ON DISCHARGE: See below. Zoloft 50 mg po q am for depression/ anxiety, Prazosin 2 mg po q hs for nightmares/night terrors, gabapentin 100 mg po q hs for mood stabilization, trazodone 100 mg po q hs for insomnia, hydroxyzine hydrochloride 50 mg po q 6h prn for anxiety/agitation. PLAN/FOLLOWUP ARRANGEMENTS: Patient to follow-up with primary care physician upon discharge for a complete physical with lab work. Patient to resume therapy and medication management services as directed. Patient to consider substance abuse support services to stop use of substances (alcohol, marijuana). Pt. continues to feel that the [facility] is the only one that can help him with is PTSD. Pt. understands he can ask for [facility] care if he feel he needs it after the [facility], or if he is not accepted into the [facility].. Pt. is [facility] eligible and will be encouraged to continue with this treatment. 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 Patient states he did request behavioral health services starting in January 2016 for symptoms that he recognized were PTSD. Patient states he has had a hard time getting treatment for the symptoms. Patient states this is why he returned to [facility] as he could not be seen or get medications that helped him improve and decrease the symptoms. Patient initially felt that is only with way to deal with this was to get out of the . Patient had previously told his chain of command that he wanted to be discharged. Pt. states he did this as he did not want his symptoms jeopardizing his fellow soldiers and did not think that he could get the symptoms under control. Pt. reports if he had known it was treatable, he would have opted to stay in the . Patient states he does enjoy being in the when he is not having the symptoms that "stress him out", in his own words. Patient states that if he thought he could say in the by stopping the use of alcohol altogether and not using marijuana he would stop it immediately. This would run concurrent with him being placed on appropriate medications to limit the severity and intensity of his PTSD symptoms. This is his second enlistment. Patient states it has become increasingly frustrating for him with his symptoms of increased stress which he was unable to get help for. Patient reports an example of this was when he asked for behavioral health services while on a recent training assignment in [place], he was told in order to get the services, he would have to report in front of formation and explain to everyone why he felt he needed these services. Patient states this only increased his stress and made him feel more frustrated. Pt. also felt like the didn't care about what his mental health was. Patient states even if he wanted to he would not have been able to planning director front of a group of his peers and discuss his private mental health issues. He also reports he didn't feel that this was appropriate that he would have to share this private information. This alone, patient reports has made him feel more anxious and stressed. Patient now feels like he doesn't know who he can trust and who really does have his back, so to speak. 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 Again patient states he felt like his only recourse was to use marijuana which brought him slight relief. The amount of time spent in the coordination of care for this patient was approximately 25 minutes. MANAGEMENT PLAN: Vital Signs Vital Sign - Last 24 Hours 06/18/16 06/18/16 06/18/16 06/19/16 12:06 18:17 20:04 06:24 Temp 96.8 96.4 96.6 Pulse 90 74 72 Resp 18 16 18 B/P 138/63 120/72 141/86 118/58 Medications Scheduled Gabapentin (Gabapentin) 100 Mg Cap #7 100 MG PO QHS MOOD STABILIZATION Prazosin HCl (Minipress) 1 Mg Cap #14 2 MG PO QHS NIGHTMARES/NIGHT TERRORS Sertraline Hcl (Sertraline HCl) 50 Mg Tab #7 50 MG PO DAILY Depression/Anxiety Trazodone HCl (Trazodone HCl) 100 Mg Tab #7 100 MG PO QHS INSOMNIA Scheduled PRN Hydroxyzine HCl (Hydroxyzine HCl) 50 Mg Tab #20 50 MG PO Q6HP PRN PRN ANXIETY/ AGITATION Allergies Coded Allergies: No Known Allergies (Unverified , 06/12/16) RAJESH COOK NP Jun 19, 2016 13:10
== END 2016-06-19 11:55 | disposition home or self-care (01) | DRG 882 ==
LOC: M ED 12:25 → M PSY 21:40
PROVIDERS: ADMIT Psychiatry & Neurology Psychiatry; ATTEND Psychiatry & Neurology Psychiatry
DX: F43.10 Post-traumatic stress disorder, unspecified (principal); F12.90 Cannabis use, unspecified, uncomplicated; G47.00 Insomnia, unspecified; F10.10 Alcohol abuse, uncomplicated; Z79.899 Other long term (current) drug therapy